=== PATIENT | female | born 2000 | race Caucasian/White ===

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

== ENCOUNTER 2021-04-24 07:25 | Emergency (ER) | payer BC ==
[~2021-04-24] VITALS: Ht 175.3 cm; Wt 54.5 kg
[~2021-04-24 07:25] MED LIST changes: -LIDOcaine 1% W/epiNEPHrine 1:100,000 20ml vial ONE
[2021-04-24 07:40] VITALS: BP 113/75
[2021-04-24] MEDS ORDERED: ibuprofen 200mg tablet PO ONE (08:25)
== END 2021-04-24 08:42 | disposition home or self-care (01) ==
LOC: ER 07:25
DX: S60.212A Contusion of left wrist, initial encounter (principal); Z72.89 Other problems related to lifestyle; Z79.899 Other long term (current) drug therapy; W01.0XXA Fall on same level from slipping, tripping and stumbling without subsequent striking against object, initial encounter; Y93.01 Activity, walking, marching and hiking; Y92.89 Other specified places as the place of occurrence of the external cause; Y99.8 Other external cause status
CPT/HCPCS: 29125; 73130; 99283